=== PATIENT | male | born 1995 | race Caucasian/White ===

== ENCOUNTER 2021-04-18 09:28 | Day surgery (SDC) | payer OTHER ==
[2021-04-18] MEDS: Ringers Lactate 1,000 ML IV ONE ×2 (10:40→11:15)
[2021-04-18] MEDS ORDERED: propofoL 200 MG/20 ML VIAL IV ONE (11:38)
[2021-04-18] MEDS ORDERED: LIDOCAINE 1% MPF 30 ML VIAL ONE (11:38)
--- NOTE | 2021-04-18 11:38 | ENDO RPT ---
[address], [address] EGD PROCEDURE REPORT EXAM DATE: 04/18/2021 PATIENT NAME: Anil Singh MR#: [id number] BIRTHDATE: 1995 ATTENDING: Valentin Rooney DR STATUS: outpatient DEPARTMENT MANAGER: Leelee Villegas and Margi Vee RN INDICATIONS: The patient is a 25 yr old Male here for an EGD due to mid epigastric abdominal pain PROCEDURE PERFORMED: EGD with biopsy and EGD with biopsy for H. pylori MEDICATIONS: Per Anesthesia. TOPICAL ANESTHETIC: none CONSENT: The patient understands the risks and benefits of the procedure and understands that these risks include, but are not limited to: sedation, allergic reaction, infection, perforation and/or bleeding. Alternative means of evaluation and treatment include, among others: physical exam, x-rays, and/or surgical intervention. The patient elects to proceed with this endoscopic procedure. DESCRIPTION OF PROCEDURE: During intra-op preparation period all mechanical medical equipment was checked for proper function. Hand hygiene and appropriate measures for infection prevention was taken. Procedure, possible complications, and alternatives including but not limited to the possibility of bleeding, perforation, tear, infection, sepsis, need for surgery, need for blood transfusion, and anesthesia related complications were explained to the patient. After the risks, benefits and alternatives of the procedure were thoroughly explained, Informed consent was verified, confirmed and timeout was successfully executed by the treatment team. The patient was placed in the left lateral position. The patient was anesthetized with topical anesthesia. Through the anesthetized oropharyngeal area, the scope was passed without any difficulty. The EG-[id number] ([id number]) endoscope was introduced through the mouth and advanced to the third portion of the duodenum. Retroflexed views revealed no abnormalities. The gastroscope was then slowly withdrawn and removed. Mild gastritis was found in the body and the antrum of the stomach. A biopsy for H. pylori was taken. Multiple biopsies were obtained and sent to pathology. Normal GE junction was noted. ADVERSE EVENTS: There were no complications. IMPRESSIONS: 1. Mild gastritis was found in the body and the antrum of the stomach 2. Normal GE junction RECOMMENDATIONS: 1. anti-reflux regimen 2. acid suppression therapy 3. await biopsy results 4. follow-up: office 1 week(s) 5. avoid NSAIDS 6. follow-up of helicobacter pylori status, treat if indicated REPEAT EXAM: Valentin Rooney DR eSigned: Valentin Rooney DR 04/18/2021 11:37 AM cc: CPT CODES: ICD9 CODES: PATIENT NAME: Anil SinghDomingo MR#: [id number]
[2021-04-18 13:03] VITALS: BP 114/64; TEMP 97.6; O2SAT 98
== END 2021-04-18 12:20 | disposition home or self-care (01) ==
LOC: OR 09:28
PROVIDERS: ATTEND Surgery
PROC: 0DB78ZX Excision of Stomach, Pylorus, Via Natural or Artificial Opening Endoscopic, Diagnostic (ICD-10-PCS; 2021-04-18)
PROC: 0DB68ZX Excision of Stomach, Via Natural or Artificial Opening Endoscopic, Diagnostic (ICD-10-PCS; 2021-04-18)
PROC: 0DB98ZX Excision of Duodenum, Via Natural or Artificial Opening Endoscopic, Diagnostic (ICD-10-PCS; principal; 2021-04-18 12:00)
DX: K29.50 Unspecified chronic gastritis without bleeding (principal); Z20.822 Contact with and (suspected) exposure to COVID-19
CPT/HCPCS: 88312; 88305; 43239; U0003; J2704; J7120

== ENCOUNTER 2024-08-16 22:25 | Emergency (ER) | payer OTHER, SELFPAY ==
--- OUTSIDE RECORDS SUMMARY | 2024-08-16 22:27 | XMS REPORT | Continuity of Care Document ---
Author Name Unknown Address [address] [facility] [address] [place] [address] [facility] thconnect Address [address] [facility] [place] [address] Care Team Providers Care Clinical Laboratory Aide Name Role Phone Unavailable Unavailable Unavailable Encounters Start Date/Time End Date/Time Encounter Type Admission Type Attending Clinicians Care Facility Care Department Encounter ID Source 2024-04-26 16:16:50 2024-04-26 16:16:[address] [facility] [id number] [place] Results Test Description Test Time Test Comments Results Result Co mments Source CBC W/AUTO DIFF WITH [id number] 05:12:19* Test Item Value Reference Range Interpretation Comme nts WBC (test code = 1001) 5.6 K/UL 3.5-11.0 RBC (test code = 1002) 5.45 M/UL 4.50-6.10 HEMOGLOBIN (test code = 1003) 16.4 G/DL 13.5-17.0 HEMATOCRIT (test code = 1004) 47.5 % 40.0-51.0 MCV (test code = 1005) 87.2 fL 80.0-99.0 MCH (test code = 1006) 30.1 PG 25.0-33.0 MCHC (test code = 1007) 34.5 G/DL 31.0-36.0 RDW (test code = 1038) 13.5 % 11.5-15.0 NEUTROPHILS (test code = 1008) TEST NOT PERFORMED % CELLS TOO DISTORTED TO OBTAIN AN ACCURATE DIFFERENTIAL. PLEASE RESUBMIT. PLATELET COUNT (test code = 1015) 311 K/UL 130-400 UNLESS OTHERW ISE INDICATED, ALL TESTING PERFORMED AT [facility] [address] [place] [address] LITHOGRAPHIC STRIPPER: Annie BATISTAIA NUMBER [id number] [facility] [place]. [id number]
[2024-08-16] MEDS ORDERED: NA CHLORIDE 0.9% 1,000 ML ONE (23:53)
[2024-08-16 23:55] LABS: Absolute Lymphocytes (CBC) 0.8 K/uL (0.7-4.9); Absolute Monocytes 0.6 K/uL (0.1-1.3); Absolute Neutrophil 10.1 K/uL (1.8-8.0); Basophils % 0.1 % (0-1.3); Eosinophils % 0.4 % (0-4.4); Hematocrit 45.6 % (39.6-49.0); Hemoglobin 15.5 g/dL (13.6-17.9); MCH 29.1 pg (27.0-35.0); MCV 85.6 fL (80-100); MPV 7.3 fL (7.6-11.3); Neutrophils % 87.5 % (41.7-73.7); Platelets 310 thou/uL (152-406); RBC Red Blood Cell Count 5.32 M/uL (4.33-5.43); Red Cell Distribution Width 13.9 % (12.1-15.2)
[2024-08-17 00:11] LABS: ALT/SGPT 127 U/L (16-61); AST/SGOT 176 U/L (15-37); Albumin 4.2 g/dL (3.4-5.0); Albumin/Globulin Ratio 1.3 (1.1-1.8); Alkaline Phosphatase 95 U/L (45-117); Anion Gap 6.2 mEq/L (5.0-15.0); BUN Blood Urea Nitrogen 19 mg/dL (7-18); Bicarbonate 33 mEq/L (21-32); Bilirubin Direct 0.4 mg/dL (0-0.2); Bilirubin Indirect, Calculated 0.5 mg/dL (0.2-0.8); Bilirubin Total 0.9 mg/dL (0.2-1.0); Globulin 3.2 g/dL (2.3-3.5); Glomerular Filtration Rate 96 ml/min (=/>90); Glucose Level 107 mg/dL (74-106); Magnesium 2.2 mg/dL (1.6-2.4); NT PRO-BNP 33 pg/mL (<125); Potassium 4.2 mEq/L (3.5-5.1); Protein, Total 7.4 g/dL (6.4-8.2); Sodium Level 139 mEq/L (136-145)
--- NOTE | 2024-08-17 00:11 | RAD REPORT ---
EXAM DESCRIPTION: XR CHEST 1 VIEW CLINICAL HISTORY: Chest pain. COMPARISON: None FINDINGS: Cardiac silhouette is within normal limits. There is no focal parenchymal or pleural disease. There i s no acute osseous process visualized. IMPRESSION: No evidence of acute cardiopulmonary disease. Electronically signed by: Glen Johnson MD 08/17/2024 12:07 AM [facility] Due to temporary technical issues with the PACS/iDoc24 reporting system, reports are being lamont d by the in-house radiologist without review as a courtesy to ensure prompt reporting the interpreting radiologist is fully responsible for the content of the report. Transcribed Date/Time: 08/17/2024 12:10 AM
[2024-08-17 00:12] LABS: Troponin High Sensitivity < 3.0 pg/mL (<58.9)
[2024-08-17 00:37] LABS: Band Neutrophils 4 % (0-1); Differential Total Cells Count 100; Eosinophils 1 % (0-3); Lymphocytes 8 % (15-42); Monocytes 4 % (0-10); Reactive Lymphocytes 2 %; Segmented Neutrophils 81 % (40-80)
[2024-08-17 00:38] LABS: Blood Morphology Comment NOT SEEN (NOT SEEN); Platelet Estimate ADEQ
--- NOTE | 2024-08-17 01:50 | RAD REPORT ---
CLINICAL HISTORY: Chest pain, epigastric, SOB. COMPARISON: XR Chest 08/16/2024. TECHNIQUE: CT CHEST ABDOMEN PELVIS WITH IV CONTRAST on 08/16/2024 11:49 PM CLASSIFYING MACHINE OPERATOR. MIPS reconstructions were generated. This exam was performed according to our departmental dose-optimization program, which includes autom ated exposure control, adjustment of the mA and/or kV according to patient size and/or use of iterative reconstruction technique. FINDINGS: Vascular: Thoracic aorta is normal in course and caliber without aneurysm or dissection. Pulmonary ar teries are adequately opacified without acute or chronic filling defects. Abdominal aorta is normal in course and caliber without aneurysm. Pelvic arteries are patent without aneurysm or occlusion. Chest: The heart is normal in size. There is no pericardial effusion. Intrathoracic lymph nodes are n ot enlarged. There is no pleural effusion, pleural thickening or pneumothorax. Central airways are patent. Lungs a re clear with no consolidation, mass or interstitial lung disease. Abdomen: The liver is normal in appearance. There is no biliary dilatation. Gallbladder contains mult iple gallstones. The pancreas and spleen are normal in appearance. The adrenal glands and kidneys are unremarkable. There is no free air. There is no retroperitoneal adenopathy. Pelvis: There is no bowel obstruction. Urinary bladder is unremarkable. There is no free fluid. Appen tomas is not clearly seen. There is no pericecal inflammation. Skeleton: There are no acute osseous findings. No suspicious bony lesions. IMPRESSION: No aortic dissection or aneurysm. No pulmonary embolus. No definite acute inflammatory process. Cholelithiasis. Electronically signed by: Rom Strong MD 08/17/2024 01:45 AM CLASSIFYING MACHINE OPERATOR RP Due to temporary technical issues with the PACS/[employer] reporting system, reports are being lamont d by the in-house radiologist without review as a courtesy to ensure prompt reporting the interpreting radiologist is fully responsible for the content of the report. Transcribed Date/Time: 08/17/2024 1:50 AM
--- NOTE | 2024-08-17 02:12 | ER ---
Nurse's Notes [facility] Name: Anil Singh Age: 29 yrs Sex: Male : 1995 Arrival Date: 08/16/2024 Time: 22:25 Bed 8 Private MD: Diagnosis: Epigastric abdominal tenderness;Epigastric pain;Elevated Liver Enzymes, Acute transaminitis Presentation: 08/16 22:30 Chief complaint: Patient states: MID EPIGASTRIC PAIN, CHEST PAIN , SHORTNESS OF BREATH. ha1 STARTED 30 MINUTES AGO. Coronavirus screen: Client denies travel out of the [place] in the last 14 days. Ebola Screen: No symptoms or risks identified at this time. Initial Sepsis Screen: Does the patient meet any 2 criteria? No. Patient's initial sepsis screen is negative. Does the patient have a suspected source of infection? No. Patient's initial sepsis screen is negative. Risk Assessment: Do you want to hurt yourself or someone else? Patient reports no desire to harm self or others. Onset of symptoms was August 16, 2024. 22:30 Method Of Arrival: Ambulatory ha1 22:30 Acuity: CARLOS 2 ha1 Triage Assessment: 22:32 General: Appears uncomfortable, Behavior is calm, cooperative. Pain: Complains of pain ha1 in epigastric area Pain radiates to chest Pain currently is 9 out of 10 on a pain scale. Quality of pain is described as stabbing. Neuro: Level of Consciousness is awake, alert, obeys commands, Oriented to person, place, time, situation. Cardiovascular: Capillary refill < 3 seconds Patient's skin is warm and dry. Cardiovascular: Reports chest pain. Respiratory: Reports shortness of breath Airway is patent Respiratory effort is even, unlabored, Respiratory pattern is regular, symmetrical, Onset: The symptoms/episode began/occurred suddenly, the patient has mild shortness of breath. GI: Abdomen is flat, non-distended, Reports epigastric pain. Historical: - Allergies: 22:32 No Known Allergies; ha1 - PMHx: 22:32 None; ha1 - Immunization history:: Adult Immunizations up to date. - Infectious Disease History:: Denies. - Social history:: Smoking status: Patient denies any tobacco usage or history of. - Family history:: not pertinent. Screenin:41 [facility] ED Fall Risk Assessment (Adult) History of falling in the last 3 months, ay including since admission No falls in past 3 months (0 pts) Confusion or Disorientation No (0 pts) Intoxicated or Sedated No (0 pts) Impaired Gait No (0 pts) Mobility Assist Device Used No (0 pt) Altered Elimination No (0 pt) Score/Fall Risk Level 0 - 2 = Low Risk Oriented to surroundings, Maintained a safe environment, Educated pt \T\ family on fall prevention, incl call for assistance when getting out of bed. Abuse screen: Denies threats or abuse. Nutritional screening: No deficits noted. Tuberculosis screening: No symptoms or risk factors identified. Assessment: 23:41 General: Appears in no apparent distress. comfortable, Behavior is calm, cooperative. ay Pain: Complains of pain in abdomen and epigastric area Pain currently is 1 out of 10 on a pain scale. Neuro: Level of Consciousness is awake, alert, obeys commands, Oriented to person, place, time, situation, Speech is normal. Cardiovascular: Heart tones S1 S2 Capillary refill < 3 seconds Patient's skin is warm and dry. Rhythm is sinus rhythm. Respiratory: Airway is patent Trachea Respiratory effort is even, unlabored, Respiratory pattern is regular, symmetrical, Breath sounds are clear bilaterally. GI: Bowel sounds present X 4 quads. Abd is soft and non tender X 4 quads. : No signs and/or symptoms were reported regarding the genitourinary system. EENT: No signs and/or symptoms were reported regarding the EENT system. Derm: No signs and/or symptoms reported regarding the dermatologic system. Musculoskeletal: No signs and/or symptoms reported regarding the musculoskeletal system. 08/17 01:08 Reassessment: No changes from previously documented assessment. Patient and/or family ay updated on plan of care and expected duration. Pain level reassessed. Patient is alert, oriented x 3, equal unlabored respirations, skin warm/dry/pink. 01:56 Reassessment: Patient appears in no apparent distress at this time. No changes from ay previously documented assessment. Patient and/or family updated on plan of care and expected duration. Pain level reassessed. Patient is alert, oriented x 3, equal unlabored respirations, skin warm/dry/pink. Patient states feeling better. Vital Signs: 08/16 22:30 BP 113 / 66; Pulse 80; Resp 18 S; Temp 97.1(T); Pulse Ox 100% on R/A; Weight 81.65 kg; ha1 Height 5 ft. 7 in. ; 23:41 BP 109 / 73; Pulse 80; Resp 14; Pulse Ox 100% ; ay 08/17 00:30 BP 115 / 72; Pulse 77; Resp 12; Pulse Ox 100% on R/A; ay 01:57 BP 115 / 63; Pulse 80; Resp 12; Pulse Ox 99% on R/A; ay 08/16 22:30 Body Mass Index 28.19 (81.65 kg, 170.18 cm) ha1 [place]burn Coma Score: 08/16 23:41 Eye Response: spontaneous(4). Motor Response: obeys commands(6). Verbal Response: ay oriented(5). Total: 15. 08/17 04:56 Eye Response: spontaneous(4). Motor Response: obeys commands(6). Verbal Response: sp4 oriented(5). Total: 15. ED Course: 08/16 22:26 Patient arrived in ED. im 22:32 Triage completed. ha1 22:32 Jayy Oviedo MD is Attending Physician. sp4 23:20 XRAY Chest (1 view) In Process Unspecified. EDMS 23:30 Basic Metabolic Panel Sent. vk 23:30 CBC with Diff Sent. vk 23:30 LFT's Sent. vk 23:30 Magnesium Sent. vk 23:30 NT PRO-BNP Sent. vk 23:30 Troponin HS Sent. vk 23:30 Initial lab(s) drawn, by me, sent to lab. vk 23:30 EKG done, by ED staff. vk 23:31 Inserted saline lock: 20 gauge in left antecubital area, using aseptic technique. Blood vk collected. Flushed with 10 mL NS. 23:41 Marlo Singh, RN is Primary Nurse. ay 23:41 No provider procedures requiring assistance completed. ay 23:41 Patient has correct armband on for positive identification. Bed in low position. Call ay light in reach. Side rails up X2. Provided Education on: care plan. 08/17 00:01 Influenza Screen (a \T\ B) Sent. ay 00:11 CT Chest, Abdomen, Pelvis - W/Contrast In Process Unspecified. EDMS 02:11 Srinivasa Perez DO is Referral Physician. sp4 02:38 IV discontinued, intact, bleeding controlled, No redness/swelling at site. Pressure ay dressing applied. 02:39 Arm band placed on right wrist. ay Administered Medications: 08/16 23:57 Drug: NS 0.9% IV 1000 ml IV at 1000 ml once; to be given as a bolus over 60 minutes ay Route: IV; Rate: 1000 ml; Site: left antecubital; 08/17 00:02 Follow up: Response: No adverse reaction ay 02:40 Follow up: Response: No adverse reaction; IV Status: Completed infusion; IV Intake: ay 1000ml Medication: 08/16 23:41 VIS not applicable for this client. ay Intake: 08/17 02:40 IV: 1000ml; Total: 1000ml. ay Outcome: 02:12 Discharge ordered by . sp4 02:38 Discharged to home ambulatory, ay 02:38 Condition: stable 02:38 Discharge instructions given to patient, Instructed on discharge instructions, follow up and referral plans. 02:41 Patient left the ED. ay Signatures: Dispatcher [employer] EDMS Casie Pace, RN RN ha1 Jayy Oviedo MD MD sp4 Dee Dee Peck Vivian vk Yakubu, Awudu, RN RN ay
--- NOTE | 2024-08-17 02:12 | EDPHYS ---
Physician Documentation [facility] Name: Anil Singh Age: 29 yrs Sex: Male : 1995 Arrival Date: 08/16/2024 Time: 22:25 Bed 8 Private MD: ED Physician Jayy Oviedo HPI: 08/16 22:32 This 29 yrs old Male presents to ER via Ambulatory with complaints of sp4 Breathing Difficulty, Chest Pain. 08/17 04:56 29-year-old male presents with complaint of difficulty breathing and epigastric sp4 abdominal pain associated with some chest pain. . Patient states pain started about 7 PM.. Historical: - Allergies: 08/16 22:32 No Known Allergies; ha1 - PMHx: 22:32 None; ha1 - Immunization history:: Adult Immunizations up to date. - Infectious Disease History:: Denies. - Social history:: Smoking status: Patient denies any tobacco usage or history of. - Family history:: not pertinent. ROS: 08/17 04:56 Constitutional: Negative for fever, chills, and weight loss, positive for epigastric sp4 pain , positive for shortness of breath. All other systems are negative, Exam: 04:56 Constitutional: This is a well developed, well nourished patient who is awake, alert, sp4 and in no acute distress. Head/Face: Normocephalic, atraumatic. Positive for facial rash associated with dandruff, positive for signs of facial eczema Eyes: Pupils equal round and reactive to light, extra-ocular motions intact. Lids and lashes normal. Conjunctiva and sclera are not injected. Cornea within normal limits. Periorbital areas with no swelling, redness, or edema. ENT: Nares patent. No nasal discharge, no septal abnormalities noted. Tympanic membranes are normal and external auditory canals are clear. Oropharynx with no redness, swelling, or masses, exudates, or evidence of obstruction, uvula midline. Mucous membranes moist. Neck: Trachea midline, no thyromegaly or masses palpated, and no cervical lymphadenopathy. Supple, full range of motion without nuchal rigidity, or vertebral point tenderness. Chest/axilla: Normal chest wall appearance and motion. Nontender with no deformity. No lesions are appreciated. Cardiovascular: Regular rate and rhythm with a normal S1 and S2. No gallops, murmurs, or rubs. Normal PMI, no JVD. No pulse deficits. Respiratory: Lungs have equal breath sounds bilaterally, clear to auscultation and percussion. No rales, rhonchi or wheezes noted. No increased work of breathing, no retractions or nasal flaring. Abdomen/GI: Soft, with normal bowel sounds. No distension or tympany. No guarding or rebound. No evidence of tenderness throughout. Back: No spinal tenderness. No costovertebral tenderness. Skin: Warm, dry with normal turgor. Normal color with no rashes, no lesions, and no evidence of cellulitis. MS/ Extremity: Pulses equal, no cyanosis. Neurovascular intact. Full, normal range of motion. Neuro: Awake and alert, GCS 15, oriented to person, place, time, and situation. Cranial nerves II-XII grossly intact. Motor strength 5/5 in all extremities. Sensory grossly intact. Psych: Awake, alert, with orientation to person, place and time. Behavior, mood, and affect are within normal limits 04:56 ECG was reviewed by the Attending Physician. EKG at 2234 reveals normal sinus rhythm sp4 with a rate of 80 Vital Signs: 08/16 22:30 BP 113 / 66; Pulse 80; Resp 18 S; Temp 97.1(T); Pulse Ox 100% on R/A; Weight 81.65 kg; ha1 Height 5 ft. 7 in. ; 23:41 BP 109 / 73; Pulse 80; Resp 14; Pulse Ox 100% ; ay 08/17 00:30 BP 115 / 72; Pulse 77; Resp 12; Pulse Ox 100% on R/A; ay 01:57 BP 115 / 63; Pulse 80; Resp 12; Pulse Ox 99% on R/A; ay 08/16 22:30 Body Mass Index 28.19 (81.65 kg, 170.18 cm) ha1 Michael Coma Score: 08/16 23:41 Eye Response: spontaneous(4). Motor Response: obeys commands(6). Verbal Response: ay oriented(5). Total: 15. 08/17 04:56 Eye Response: spontaneous(4). Motor Response: obeys commands(6). Verbal Response: sp4 oriented(5). Total: 15. MDM: 08/16 22:34 Medical Screening Exam initiated sp4 22:34 ED course: EKG at 2234 is normal. Workup basically unremarkable except elevated liver sp4 enzymes.. CT is normal today. Patient advised to see primary care physician for liver enzyme repeat in 2 to 4 weeks . 08/17 02:09 ED course: CLINICAL HISTORY: Chest pain, epigastric, SOB. COMPARISON: XR Chest sp4 08/16/2024. TECHNIQUE: CT CHESTABDOMEN PELVIS WITH IV CONTRAST on 08/16/2024 11:49 PM FINANCIAL REPORTING CONSULTANT. MIPS reconstructions were generated. This exam was performed according to our departmental dose-optimization program, which includes automated exposure control, adjustment of the mA and/or kV according to patient size and/or use of iterative reconstruction technique. FINDINGS: Vascular: Thoracic aorta is normal in course and caliber without aneurysm or dissection. Pulmonary arteries are adequately opacified without acute or chronic filling defects. Abdominal aorta is normal in course and caliber without aneurysm. Pelvic arteries are patent without aneurysm or occlusion. Chest: The heart is normal in size. There is no pericardial effusion. Intrathoracic lymph nodes are not enlarged. There is no pleural effusion, pleural thickening or pneumothorax. Central airways are patent. Lungs are clear with no consolidation, mass or interstitial lung disease. Abdomen: The liver is normal in appearance. There is no biliary dilatation. Gallbladder contains multiple gallstones. The pancreas and spleen are normal in appearance. The adrenal glands and kidneys are unremarkable. There is no free air. There is no retroperitoneal adenopathy. Pelvis: There is no bowel obstruction. Urinary bladder is unremarkable. There is no free fluid. Appendix is not clearly seen. There is no pericecal inflammation. Skeleton: There are no acute osseous findings. No suspicious bony lesions. IMPRESSION: No aortic dissection or aneurysm. No pulmonary embolus. No definite acute inflammatory process. Cholelithiasis. Electronically signed by: Rom Strong MD 08/17/2024. 02:13 ED course: EXAM DESCRIPTION: XR CHEST 1 VIEW CLINICAL HISTORY: Chest pain. COMPARISON: sp4 None FINDINGS: Cardiac silhouette is within normal limits. There is no focal parenchymal or pleural disease. There is no acute osseous process visualized. IMPRESSION: No evidence of acute cardiopulmonary disease. Electronically signed by: Glen Johnson MD 08/17/2024. 02:13 Differential diagnosis: Anxiety Reaction Bronchitis pneumonia, pulmonary edema. Data sp4 reviewed: vital signs, nurses notes, radiologic studies, CT scan, plain films. 08/16 22:45 Order name: Basic Metabolic Panel; Complete Time: 02:03 sp4 08/16 22:45 Order name: CBC with Diff; Complete Time: 02:03 sp4 08/16 22:45 Order name: LFT's; Complete Time: 02:03 sp4 08/16 22:45 Order name: Magnesium; Complete Time: 02:03 sp4 08/16 22:45 Order name: NT PRO-BNP; Complete Time: 02:03 sp4 08/16 22:45 Order name: Troponin HS; Complete Time: 02:03 sp4 08/16 23:41 Order name: Influenza Screen (a \T\ B); Complete Time: 02:03 4 08/16 23:59 Order name: Manual Differential; Complete Time: 02:03 EDMS 08/16 22:45 Order name: XRAY Chest (1 view) [facility] 08/16 23:49 Order name: CT Chest, Abdomen, Pelvis - W/Contrast [facility] 08/16 22:45 Order name: Cardiac monitoring; Complete Time: 23:29 4 08/16 22:45 Order name: EKG - Nurse/Tech; Complete Time: 23:11 4 08/16 22:45 Order name: IV Saline Lock; Complete Time: 23:29 4 08/16 22:45 Order name: Labs collected and sent; Complete Time: 23:29 4 08/16 22:45 Order name: O2 Per Protocol; Complete Time: 23:29 4 08/16 22:45 Order name: O2 Sat Monitoring; Complete Time: 23:30 sp4 EC/16 22:34 Rate is 80 beats/min. Rhythm is regular, Normal Sinus Rhythm. QRS [place] is Normal. [place] sp4 interval is normal. QRS interval is normal. QT interval is normal. No Q waves. T waves are Normal. No ST changes noted. Clinical impression: Normal ECG. Interpreted by me. Reviewed by me. Administered Medications: 23:57 Drug: NS 0.9% IV 1000 ml IV at 1000 ml once; to be given as a bolus over 60 minutes ay Route: IV; Rate: 1000 ml; Site: left antecubital; 08/17 00:02 Follow up: Response: No adverse reaction ay 02:40 Follow up: Response: No adverse reaction; IV Status: Completed infusion; IV Intake: ay 1000ml Disposition Summary: 08/17/24 02:12 Discharge Ordered Problem: new sp4 Symptoms: have improved sp4 Condition: Stable sp4 Diagnosis - Epigastric abdominal tenderness sp4 - Epigastric pain sp4 - Elevated Liver Enzymes, Acute transaminitis sp4 Followup: sp4 - With: Srinivasa Perez DO - When: 7 - 10 days - Reason: Recheck today's complaints Discharge Instructions: - Discharge Summary Sheet sp4 - Liver Function Tests sp4 Forms: - Patient Portal Instructions sp4 Signatures: Dispatcher [employer] EDMS Casie Pace, RN RN ha1 Jayy Oviedo MD MD sp4 Marlo Singh RN RN ay Corrections: (The following items were deleted from the chart) 08/16 22:46 22:46 BASIC METABOLIC PANEL+C.LAB.BRZ ordered. EDMS EDMS 22:46 22:46 CBC+H.LAB.BRZ ordered. EDMS EDMS 22:46 22:46 HEPATIC FUNCTION+C.LAB.BRZ ordered. EDMS EDMS 22:46 22:46 MAGNESIUM+C.LAB.BRZ ordered. EDMS EDMS 22:46 22:46 PROBNP+C.LAB.BRZ ordered. EDMS EDMS 22:46 22:46 Troponin High Sensitivity+C.LAB.BRZ ordered. EDMS EDMS 22:46 22:46 Chest Single View+RAD.RAD.BRZ ordered. EDMS EDMS
[2024-08-17 03:03] VITALS: TEMP 97.1
[2024-08-17 03:08] VITALS: BP 115/63; O2SAT 99
--- NOTE | 2024-08-17 11:56 | EKG ---
Test Date: 2024-08-16 Test Time: 22:34:47 Shell Trim Tool Setter: YADIEL MEASUREMENT RESULTS: Intervals: Rate: 80 [place]: 156 QRSD: 90 QT: 360 QTc: 415 [place]: P: 66 [place]: 156 QRS: 92 T: 60 INTERPRETIVE STATEMENTS: Normal sinus rhythm Normal ECG No previous ECG available for comparison Electronically Signed On 08-17-24 11:55:32 LEGAL SUMMER INTERN by Garcia Padilla
== END 2024-08-17 02:41 | disposition home or self-care (01) ==
LOC: ER 22:25
DX: R10.816 Epigastric abdominal tenderness (principal); R74.01 Elevation of levels of liver transaminase levels
CPT/HCPCS: 36415; 71045; 71260; 74177; 80048; 80076; 83735; 83880; 84484; 85025; 87804; 93005; 96360; 96361; 99284; J7030; Q9967